=== PATIENT | female | born 2000 | race Caucasian/White ===

== ENCOUNTER 2018-09-02 22:26 | Emergency (ER) | payer OTHER ==
[2018-09-02 22:30] VITALS: BP 139/100; PULSE 71; TEMP 98.1; BMI 32.9
--- NOTE | 2018-09-03 00:03 | PDOC ---
*Physical Exam - Vital Signs Last Vital Signs Temp Pulse Resp BP Pulse Ox 98.1 F 71 18 139/100 100 09/02/18 22:28 09/02/18 22:28 09/02/18 22:28 09/02/18 22:28 09/02/18 22:28 Medical Decision Making - Medical Decision Making 09/03/18 00:03 Patient seen by the advanced practice provider under my direct supervision. Ancillary testing reviewed as necessary. I agree with plan as outlined by the advanced practice provider. *DC/Admit/Observation/Transfer Diagnosis at time of Disposition: Musculoskeletal pain of extremity - Referrals - Patient Instructions - Post Discharge Activity
[2018-09-03] MEDS ORDERED: IBUPROFEN 600 MG TABLET (FP) PO ONE ×2 (00:16→00:31)
--- NOTE | 2018-09-03 00:22 | PDOC ---
History of Present Illness - General Chief Complaint: Pain, Acute Stated Complaint: RIGHT SHOUDER INJURY Time Seen by Provider: 09/03/18 00:00 History Source: Patient Exam Limitations: No Limitations - History of Present Illness Initial Comments: 09/03/18 00:16 HISTORY OF PRESENT ILLNESS: This is a 17-year-old girl denies medical history presents emergency department for evaluation of right shoulder pain which worsens after stretching today. Patient states she was stretching her right shoulder in the muscles in her upper back when she felt a sharp pain in the right shoulder radiating to the upper back. Patient denies any trauma. Patient did not take any [id number] pain relief prior to presentation to the emergency department. No recent travel or sick contacts. PAST MEDICAL HISTORY: Denies past medical history SURGICAL HISTORY: Denies ALLERGIES: No known drug allergies REVIEW OF SYSTEMS General/Constitutional: Denies fever or chills. Denies weakness, weight change. HEENT: Denies change in vision. Denies ear pain or discharge. Denies sore throat. Cardiovascular: Denies chest pain or shortness of breath. Respiratory: Denies cough, wheezing, or hemoptysis. Gastrointestinal: Denies nausea, vomiting, diarrhea or constipation. Denies rectal bleeding. Genitourinary: Denies dysuria, frequency, or change in urination. Musculoskeletal: see HPI Skin and breasts: Denies rash or easy bruising. Neurologic: Denies headache, vertigo, loss of consciousness, or loss of sensation. Psychiatric: Denies depression or anxiety. Endocrine: Denies increased thirst. Denies abnormal weight change. Hematologic/Lymphatic: Denies anemia, easy bleeding, or history of blood clots. Allergic/Immunologic: Denies hives or skin allergy. Denies latex allergy. PHYSICAL EXAM General Appearance: Well-appearing, appropriately dressed. No apparent distress , no intoxication. HEENT: EOMI, PERRLA, normal ENT inspection, normal voice, TMs normal, pharynx normal. No conjunctival pallor. No photophobia, scleral icterus. Neck: Supple. Trachea midline. No tenderness, rigidity, carotid bruit, stridor , lymphadenopathy, or thyromegaly. Respiratory/Chest: Lungs CTAB. No shortness of breath, chest tenderness, respiratory distress, accessory muscle use. No crackles, rales, rhonchi, stridor , wheezing, dullness Cardiovascular: RRR. S1, S2. No JVD, murmur, bradycardia, tachycardia. Vascular Pulses: Radial (R): 2+, Radial (L): 2+ Musculoskeletal/Extremities: Normal inspection. FPROM of all extremities, normal capillary refill. Pelvis Stable. No CVA tenderness. No tenderness to extremities, pedal edema, swelling, erythema or deformity. Tenderness present over the right scapula which worsens with movement. No palpable deformities, SQ emphysema or crepitus. Integumentary: Appropriate color, dry, warm. No cyanosis, erythema, jaundice or rash Past History - Past Medical History Allergies/Adverse Reactions: Allergies Allergy/AdvReac Type Severity Reaction Status Date / Time No Known Allergies Allergy Verified 09/02/18 22:28 CVA: No COPD: No - Suicide/Smoking/Psychosocial Hx Smoking History: Current every day smoker Number of Cigarettes Smoked Daily: 2 Information on smoking cessation initiated: No *Physical Exam - Vital Signs Last Vital Signs Temp Pulse Resp BP Pulse Ox 98.1 F 71 18 139/100 100 09/02/18 22:28 09/02/18 22:28 09/02/18 22:28 09/02/18 22:28 09/02/18 22:28 Medical Decision Making - Medical Decision Making 09/03/18 00:22 A/P: 17-year-old woman with atraumatic right shoulder pain Lungs clear to auscultation bilaterally No SQ emphysema or deformity palpable Tenderness to the right scapula which worsens with movement Full passive range of motion the right shoulder performed [employer] Development [employer] strength 5/5 bilaterally 2+ radial pulses present bilaterally Physical exam is consistent with musculoskeletal injury. Motrin 600 mg orally now Discharge home *DC/Admit/Observation/Transfer Diagnosis at time of Disposition: Musculoskeletal pain of extremity - Discharge Dispostion Disposition: HOME Condition at time of disposition: Stable Decision to Admit order: No - Referrals Referrals: Charles Sampson MD [Staff Physician] - - Patient Instructions Additional Instructions: REST. Use sling at all times while awake. Take Tylenol or Motrin as needed for pain. Follow manufacturers instructions for appropriate dosage. Apply ice for 20 minutes and removed for at least 20 minutes before reapplying the ice. You've been given the number for an orthopedist. If symptoms do not resolve within the next 7 days call the orthopedist for further evaluation. Return to emergency department for discoloration of the hand, numbness or tingling to the hand, worsening pain, or any other concerns. Thank you very much for choosing us to provide your emergent healthcare needs. - Post Discharge Activity Forms/Work/School Notes: Back to Work
== END 2018-09-03 02:19 | disposition home or self-care (01) ==
LOC: JER 22:26
DX: M25.511 Pain in right shoulder (principal); X50.1XXA Overexertion from prolonged static or awkward postures, initial encounter; Y93.89 Activity, other specified; Y92.89 Other specified places as the place of occurrence of the external cause; Y99.8 Other external cause status
CPT/HCPCS: 99281-25